=== PATIENT | female | born 1985 | race Two or more races ===

== ENCOUNTER 2021-03-02 09:19 | Inpatient (IN) | payer MEDICAID ==
[~2021-03-02] VITALS: Ht 154.9 cm; Wt 70.8 kg
[2021-03-02] MEDS ORDERED: LIDOCAINE HCL 1% 20ML VIAL (Pyxis) INJ INFIL SCH (13:30)
[2021-03-02] MEDS ORDERED: DEXT 5%/LR + PITOCIN 20UNITS/L 1,000 ML IV SCH (13:30)
[2021-03-02] MEDS ORDERED: METHYLERGONOVINE MALEATE 0.2 MG/ML IM PRN (13:30)
[2021-03-02] MEDS ORDERED: CARBOPROST TROMETHAMINE 250 MCG/ML AMPUL IM PRN (13:30)
[2021-03-02] MEDS ORDERED: NALOXONE HCL 0.4 MG/ML 1ML VIAL IM PRN (13:30)
[2021-03-02] MEDS ORDERED: PENICILLIN G POTASSIUM 5 MMU in DEXT 5% WATER 100 ML IV SCH (14:00)
[2021-03-02] MEDS: MISOPROSTOL 100MCG TABLET VG SCH ×2 (15:01→18:53)
[2021-03-02] MEDS: LACTATED RINGERS 1,000 ML IV SCH ×2 (15:02→23:03)
[2021-03-02 15:23] LABS: CLARITY URINE CLEAR (CLEAR); COLOR URINE YELLOW (YELLOW); KETONES URINE 1+ (NEGATIVE); LEUKOCYTE ESTERASE URINE 1+ (NEGATIVE); NITRITE URINE NEGATIVE (NEGATIVE); OCCULT BLOOD URINE NEGATIVE (NEGATIVE); PH URINE 5.5 (4.5-8.0); PROTEIN URINE NEGATIVE (NEGATIVE); SPECIFIC GRAVITY URINE 1.021 (1.005-1.030); UROBILINOGEN URINE 0.2 E.U./dL (0.2-1.0)
[2021-03-02 15:30] LABS: BASOPHILS % 0.2 % (0.0-2.0); EOSINOPHILS % 0.8 % (0.0-5.0); HEMATOCRIT. 35.1 % (36.0-48.0); HEMOGLOBIN. 12.7 g/dL (12.0-16.0); LYMPHOCYTES % 15.5 % (20.0-50.0); MEAN CORPUSCULAR HEMOGLOBIN 31.8 pg (28.0-32.0); MEAN CORPUSCULAR VOLUME 88.1 fL (81.0-99.0); MEAN PLATELET VOLUME 6.9 fl (7.4-10.4); MONOCYTES % 3.3 % (2.0-8.0); NEUTROPHILS % 80.2 % (40.0-76.0); PLATELET 220 x1000/uL (130-400); RED BLOOD CELL COUNT 3.98 mill/uL (4.2-5.4); RED CELL DISTRIBUTION WIDTH 13.2 % (11.6-14.6)
[2021-03-02 15:34] LABS: *AMPHETAMINES SCREEN URINE NEGATIVE (NEGATIVE); *BARBITURATES SCREEN URINE NEGATIVE (NEGATIVE); CANNABINOID URINE SCREEN NEGATIVE (NEGATIVE); OPIATES URINE SCREEN NEGATIVE (NEGATIVE); PHENCYCLIDINE URINE SCREEN NEGATIVE (NEGATIVE)
[2021-03-02 15:35] LABS: *BENZODIAZEPINES SCREEN URINE NEGATIVE (NEGATIVE); *COCAINE SCREEN URINE NEGATIVE (NEGATIVE); METHADONE URINE SCREEN NEGATIVE (NEGATIVE)
[2021-03-02 16:01] LABS: HEPATITIS B SURFACE ANTIGEN NEGATIVE
[2021-03-02 16:46] LABS: INR 0.9; PARTIAL THROMBOPLASTIN TIME 29.9 sec (23.4-31.0); PROTHROMBIN TIME 9.8 sec (9.6-11.0)
[2021-03-02] MEDS: PENICILLIN G POTASSIUM 2.5 MMU in DEXTROSE 5% WATER 50 ML IV SCH ×2 (19:51→23:11)
[2021-03-02] MEDS ORDERED: BUTORPHANOL TARTRATE 2 MG/ML VIAL IV PRN (23:15)
[2021-03-03] MEDS ORDERED: BUPIVACAINE HCL/PF 0.25% (2.5MG/ML) 10ML ONE (00:53)
[2021-03-03] MEDS ORDERED: FENTANYL CITRATE/PF 50MCG/ML 2ML VIAL ONE (00:53)
[2021-03-03] MEDS ORDERED: ROPIVACAINE HCL/PF EPIDURAL 200 ML EPI ONE (00:53)
[2021-03-03] MEDS: PENICILLIN G POTASSIUM 2.5 MMU in DEXTROSE 5% WATER 50 ML IV SCH ×3 (03:10→11:03)
[2021-03-03] MEDS: LACTATED RINGERS 1,000 ML IV SCH (03:19)
[2021-03-03] MEDS ORDERED: OXYTOCIN 20 UNITS in LACTATED RINGERS 1,000 ML IV SCH (08:00)
[2021-03-03] MEDS ORDERED: METHYLERGONOVINE MALEATE 0.2 MG/ML ONE (08:07)
[2021-03-03] MEDS ORDERED: MINERAL OIL 30ML BOTTLE PO NR (11:30)
[2021-03-03] MEDS ORDERED: OXYTOCIN 10 UNITS/ML 1ML ONE (13:26)
[2021-03-03] MEDS ORDERED: MORPHINE SULFATE/PF 1MG/ML 10ML AMP ONE (13:26)
[2021-03-03] MEDS ORDERED: CEFAZOLIN SODIUM 1000MG/VIAL ONE (13:26)
[2021-03-03] MEDS ORDERED: SUCCINYLCHOLINE CHLORIDE 200MG/10ML IV ONE (13:26)
[2021-03-03] MEDS ORDERED: ACETAMINOPHEN WITH CODEINE 300/30MG TABLET PO PRN (14:00)
[2021-03-03] MEDS ORDERED: ONDANSETRON HCL 4MG/2ML INJ IV PRN ×2 (14:00→14:15)
[2021-03-03] MEDS ORDERED: LANOLIN OINT 7GM TUBE TOP PRN (14:00)
[2021-03-03] MEDS ORDERED: RHO(D) IMMUNE GLOBULIN 300 MCG/SYR IM PRN (14:00)
[2021-03-03] MEDS ORDERED: HYDROCODONE/ACETAMINOPHEN 5/325MG TABLET PO PRN (14:00)
[2021-03-03] MEDS ORDERED: DIPHENHYDRAMINE 50MG/ML VIAL IV PRN ×2 (14:15)
[2021-03-03] MEDS ORDERED: MORPHINE SULFATE 10 MG/ML CPJ IV PRN (14:15)
[2021-03-03] MEDS ORDERED: FENTANYL CITRATE/PF 50MCG/ML 2ML VIAL IV PRN (14:15)
[2021-03-03] MEDS ORDERED: NALOXONE HCL 0.4MG/ML VIAL IV PRN (14:15)
[2021-03-03] MEDS ORDERED: NALOXONE HCL 0.4 MG/ML 1ML VIAL IV PRN (14:15)
[2021-03-03] MEDS ORDERED: METOCLOPRAMIDE HCL 10MG/2ML VIAL IV PRN (14:15)
[2021-03-03] MEDS ORDERED: KETOROLAC 30MG/ML VIAL IV SCH (14:15)
[2021-03-03 17:30] VITALS: BP 106/51
[2021-03-03 18:00] VITALS: BP 98/52
[2021-03-03 19:45] VITALS: BP 110/63
[2021-03-03] MEDS: DOCUSATE SODIUM 100MG CAPSULE PO SCH (20:02)
[2021-03-03] MEDS ORDERED: DIPHENHYDRAMINE 25MG CAPSULE PO PRN (21:00)
[2021-03-04] VITALS: BP 95/55
[2021-03-04 04:30] VITALS: BP 100/65
[2021-03-04 06:03] LABS: BASOPHILS % 0.1 % (0.0-2.0); EOSINOPHILS % 0.3 % (0.0-5.0); HEMATOCRIT. 34.8 % (36.0-48.0); HEMOGLOBIN. 12.2 g/dL (12.0-16.0); LYMPHOCYTES % 7.1 % (20.0-50.0); MEAN CORPUSCULAR HEMOGLOBIN 31.2 pg (28.0-32.0); MEAN CORPUSCULAR VOLUME 89.2 fL (81.0-99.0); MEAN PLATELET VOLUME 6.8 fl (7.4-10.4); NEUTROPHILS % 89.5 % (40.0-76.0); PLATELET 193 x1000/uL (130-400)
[2021-03-04 08:19] VITALS: BP 90/50
[2021-03-04] MEDS: PRENATAL VIT/FE FUMARATE/FA TABLET PO SCH (09:00)
[2021-03-04] MEDS: KETOROLAC 30MG/ML VIAL IV SCH ×2 (10:40→16:02)
[2021-03-04 15:59] VITALS: BP 92/55
[2021-03-04 20:00] VITALS: BP 105/59
[2021-03-04] MEDS ORDERED: GLYCOPYRROLATE 0.2 MG/ML 2ML VIAL ONE ×2 (20:01→20:11)
[2021-03-04] MEDS: IBUPROFEN 400MG TABLET PO PRN (20:02)
[2021-03-04] MEDS ORDERED: LIDOCAINE HCL/PF 1% 10 MG/ML 5ML VIAL ONE (20:05)
[2021-03-04] MEDS ORDERED: LABETALOL HCL 5MG/ML VIAL 20ML IV ONE (20:05)
[2021-03-04] MEDS: DOCUSATE SODIUM 100MG CAPSULE PO SCH (21:00)
[2021-03-04 23:50] VITALS: BP 102/63
[2021-03-05 04:30] VITALS: BP 100/62
[2021-03-05 08:00] VITALS: BP 92/54
[2021-03-05 08:46] LABS: BASOPHILS % 0.2 % (0.0-2.0); EOSINOPHILS % 1.1 % (0.0-5.0); HEMATOCRIT. 30.1 % (36.0-48.0); HEMOGLOBIN. 10.6 g/dL (12.0-16.0); LYMPHOCYTES % 8.2 % (20.0-50.0); MEAN CORPUSCULAR HEMOGLOBIN 31.2 pg (28.0-32.0); MEAN CORPUSCULAR VOLUME 88.5 fL (81.0-99.0); MEAN PLATELET VOLUME 6.6 fl (7.4-10.4); MONOCYTES % 2.9 % (2.0-8.0); NEUTROPHILS % 87.6 % (40.0-76.0); PLATELET 193 x1000/uL (130-400)
[2021-03-05] MEDS: PRENATAL VIT/FE FUMARATE/FA TABLET PO SCH (09:01)
[2021-03-05] MEDS: IBUPROFEN 400MG TABLET PO PRN ×2 (09:01→19:38)
[2021-03-05] MEDS ORDERED: DEXT 5%/LACTATED RINGERS 1,000 ML IV SCH (09:15)
[2021-03-05] MEDS ORDERED: GENTAMICIN 120MG PREMIX 100 ML IV SCH (10:00)
[2021-03-05] MEDS ORDERED: CLINDAMYCIN IN 0.9 % SOD CHLOR 50 ML IV SCH (10:00)
[2021-03-05 12:55] LABS: CHLORIDE 113 mEq/L (98-107)
[2021-03-05 16:00] VITALS: BP 102/56
[2021-03-05 20:00] VITALS: BP 121/54
[2021-03-05] MEDS ORDERED: GENTAMICIN 100MG PREMIX 50 ML IV SCH (20:00)
[2021-03-05] MEDS: DOCUSATE SODIUM 100MG CAPSULE PO SCH (20:18)
[2021-03-06] VITALS: BP 105/60
[2021-03-06 04:00] VITALS: BP 110/62
[2021-03-06] MEDS: IBUPROFEN 400MG TABLET PO PRN ×2 (04:21→10:09)
[2021-03-06 07:30] VITALS: BP 105/66
[2021-03-06] MEDS ORDERED: IBUP-2029 MT (08:48)
[2021-03-06] MEDS: PRENATAL VIT/FE FUMARATE/FA TABLET PO SCH (09:17)
== END 2021-03-06 11:30 | disposition home or self-care (01) | DRG 540 ==
LOC: INTOOBSV 09:19 → 8 EST LDRP 09:19 → UNDOADMOB 09:19 → OBSVTOIN 09:19 → 8EST 03-03 17:00 → 8 EST LDRP 03-03 17:00
PROVIDERS: ADMIT Obstetrics & Gynecology; ATTEND Obstetrics & Gynecology
PROC: 3E0P7GC Introduction of Other Therapeutic Substance into Female Reproductive, Via Natural or Artificial Opening (ICD-10-PCS; 2021-03-02)
PROC: 10D00Z1 Extraction of Products of Conception, Low, Open Approach (ICD-10-PCS; principal; 2021-03-03)
DX: O62.2 Other uterine inertia (principal); O24.420 Gestational diabetes mellitus in childbirth, diet controlled; O76 Abnormality in fetal heart rate and rhythm complicating labor and delivery; Z20.822 Contact with and (suspected) exposure to COVID-19; O99.824 Streptococcus B carrier state complicating childbirth; Z3A.38 38 weeks gestation of pregnancy; Z37.0 Single live birth
CPT/HCPCS: 36415; 76805; 76818; 80048; 80305; 81003; 82947; 82962; 85025; 86592; 86703; 86762; 86850; 86900; 87340; 87426; 88307; G0378; J0330; J0595; J0690; J1580; J1885; J2210; J2274; J2540; J2590; J2795; J3010; J3490; J7060; J7120; J7121; A4315